=== PATIENT | female | born 1985 | race Caucasian/White ===

== ENCOUNTER 2016-11-28 09:25 | Inpatient (IN) | payer BC ==
[~2016-11-28] VITALS: Ht 162.6 cm; Wt 77.3 kg
[2017-03-10] MEDS ORDERED: PRENATAL1 TA7 PO (19:17)
[2017-03-10] MEDS ORDERED: BENTYL 20MG20 MG/TAB PO (20:49)
[2017-03-10] MEDS ORDERED: ZOFRAN ODT4 MG PO (20:49)
[2017-07-20] VITALS (19 sets, daily range): BP systolic 98–128; BP diastolic 47–85; PULSE 56–113; TEMP 97.3–98.1
[2017-07-20 06:24] LABS: HEMOGLOBIN 12.3 g/dl (12.5-16.0); MEAN CELL VOLUME 96 fl (80.0-100.0); MEAN CORPUSCULAR HEMOGLOBIN 33 pg (27.0-31.0); MEAN CORPUSCULAR HGB CONC 34 g/dl (33.0-37.0); MEAN PLATELET VOLUME 12.1 fl (7.4-10.4); PLATELET COUNT 187 K/mm3 (130-400); RED BLOOD COUNT 3.77 M/mm3 (4.10-5.30); REDCELL DISTRIBUTION WIDTH-CV 13.5 % (11.5-14.5); WHITE BLOOD COUNT 13.6 K/mm3 (4.8-10.8)
[2017-07-20 06:26] LABS: ADD PATHOLOGY DIFF REVIEW NO
[2017-07-20] MEDS ORDERED: BENADRYL25 M2 PO (06:52)
[2017-07-20 08:03] LABS: BAND 11 % (0-10); EOSINOPHIL 3 % (0-4); NEUTROPHILS 72 % (42.0-75.2); TOTAL CELLS COUNTED 100
[2017-07-20 08:04] LABS: PLATELET ESTIMATE NORMAL (NORMAL)
[2017-07-20] MEDS ORDERED: IBU600 MG PO (08:34)
[2017-07-20] MEDS ORDERED: PERCOCET 325 MG1 TA2 PO (08:34)
[2017-07-21 07:05] VITALS: BP 105/56; PULSE 73; TEMP 97.7
[2017-07-21 08:07] LABS: MEAN CELL VOLUME 98 fl (80.0-100.0); MEAN CORPUSCULAR HGB CONC 34 g/dl (33.0-37.0); MEAN PLATELET VOLUME 12.1 fl (7.4-10.4); PLATELET COUNT 180 K/mm3 (130-400); RED BLOOD COUNT 3.18 M/mm3 (4.10-5.30); REDCELL DISTRIBUTION WIDTH-CV 13.6 % (11.5-14.5); WHITE BLOOD COUNT 18.6 K/mm3 (4.8-10.8)
[2017-07-21 08:12] LABS: HEMOGLOBIN 10.4 g/dl (12.5-16.0); MEAN CORPUSCULAR HEMOGLOBIN 33 pg (27.0-31.0)
[2017-07-21 08:13] LABS: ADD PATHOLOGY DIFF REVIEW NO
[2017-07-21 09:39] LABS: BAND 14 % (0-10); NEUTROPHILS 75 % (42.0-75.2); PLATELET ESTIMATE NORMAL (NORMAL); TOTAL CELLS COUNTED 100
== END 2017-07-21 12:00 | disposition home or self-care (01) | DRG 766 ==
LOC: LDRO → EDSTATUS 07-11 06:51 → LDRO 07-11 10:28 → OB 07-20 05:21
PROVIDERS: Obstetrics & Gynecology
PROC: 10D00Z1 Extraction of Products of Conception, Low, Open Approach (ICD-10-PCS; principal; 2017-07-20)
DX: O34.211 Maternal care for low transverse scar from previous cesarean delivery (principal); N85.8 Other specified noninflammatory disorders of uterus; Z3A.39 39 weeks gestation of pregnancy; Z37.0 Single live birth
CPT/HCPCS: J0690; J1885; J2274; J2370; J2405; J2765; J2795; J3010; J7120

== ENCOUNTER 2017-03-10 19:00 | Emergency (ER) | payer BC ==
[~2017-03-10] VITALS: Ht 162.6 cm; Wt 63.6 kg
[2017-03-10 19:14] VITALS: TEMP 97.7
[2017-03-10] MEDS ORDERED: PRENATAL1 TA7 PO (19:17)
[2017-03-10 20:06] LABS: BASO # 0.1 (0.0-0.2); BASO % 0.5 % (0.0-2.0); EOS # 0.3 (0.0-0.7); EOS % 2.3 % (0-4.0); GRAN # 10.2 (1.4-6.5); GRAN % 77.1 % (42.2-75.2); HEMATOCRIT 35.9 % (37.0-47.0); HEMOGLOBIN 12.5 g/dl (12.5-16.0); LYMPH # 1.5 (1.2-3.4); LYMPH % 11.1 % (20.0-51.0); MEAN CELL VOLUME 94 fl (80.0-100.0); MEAN CORPUSCULAR HEMOGLOBIN 33 pg (27.0-31.0); MEAN CORPUSCULAR HGB CONC 35 g/dl (33.0-37.0); MEAN PLATELET VOLUME 10.6 fl (7.4-10.4); MONO % 7.9 % (1.7-9.3); PLATELET COUNT 230 K/mm3 (130-400); RED BLOOD COUNT 3.82 M/mm3 (4.10-5.30); REDCELL DISTRIBUTION WIDTH-CV 12.7 % (11.5-14.5); WHITE BLOOD COUNT 13.2 K/mm3 (4.8-10.8)
[2017-03-10 20:10] LABS: PH 6 (5-8); SQUAMOUS EPITHELIAL 0-2 /hpf; URINE APPEARANCE Clear; URINE BACTERIA None Seen /hpf; URINE BILIRUBIN Negative (NEGATIVE); URINE BLOOD Negative (NEGATIVE); URINE COLOR Yellow; URINE GLUCOSE Negative (NEGATIVE); URINE KETONE Trace (NEGATIVE); URINE RBC 0-2 /hpf; URINE UROBILINOGEN Negative (NEGATIVE); URINE WBC 0-2 /hpf
[2017-03-10 20:15] LABS: ALBUMIN 3.8 gm/dL (3.5-5.0); BILIRUBIN,TOTAL 0.6 mg/dL (0.0-1.0); CALCIUM 8.8 mg/dL (8.4-10.2); CREATININE, serum 0.79 mg/dL (0.52-1.25); POTASSIUM 3.7 mmol/L (3.4-5.0); TOTAL PROTEIN 6.8 gm/dL (6.4-8.2)
[2017-03-10] MEDS ORDERED: ZOFRAN ODT4 MG PO (20:49)
[2017-03-10] MEDS ORDERED: BENTYL 20MG20 MG/TAB PO (20:49)
[2017-03-10 21:03] VITALS: BP 118/68; PULSE 64
== END 2017-03-10 21:05 | disposition home or self-care (01) ==
LOC: COL.ER 19:00
PROVIDERS: Emergency Medicine
DX: O99.89 Other specified diseases and conditions complicating pregnancy, childbirth and the puerperium (principal); R10.84 Generalized abdominal pain; R11.2 Nausea with vomiting, unspecified; Z3A.20 20 weeks gestation of pregnancy
CPT/HCPCS: J0500; J2405; J7030

== ENCOUNTER 2018-08-16 06:36 | Inpatient (IN) | payer MEDICAID ==
[~2018-08-16] VITALS: Ht 162.6 cm; Wt 73.2 kg
[2018-08-16] VITALS (18 sets, daily range): BP systolic 99–120; BP diastolic 56–88; PULSE 60–76; TEMP 97.4–98.4
[~2018-08-16 06:36] MED LIST: BENADRYL25 M2 PO; BENTYL 20MG20 MG/TAB PO; IBU600 MG PO; PERCOCET 325 MG1 TA2 PO; PRENATAL1 TA7 PO; ZOFRAN ODT4 MG PO
[2018-08-16 10:13] LABS: BASO % 0.4 % (0.0-2.0); EOS # 0.2 (0.0-0.7); EOS % 1.6 % (0-4.0); GRAN % 71.5 % (42.2-75.2); HEMOGLOBIN 10.9 g/dl (12.5-16.0); LYMPH # 1.5 (1.2-3.4); LYMPH % 15.3 % (20.0-51.0); MEAN CELL VOLUME 91 fl (80.0-100.0); MEAN CORPUSCULAR HEMOGLOBIN 30 pg (27.0-31.0); MEAN CORPUSCULAR HGB CONC 33 g/dl (33.0-37.0); MEAN PLATELET VOLUME 12.7 fl (7.4-10.4); MONO # 0.9 (0.1-0.6); MONO % 9.1 % (1.7-9.3); PLATELET COUNT 187 K/mm3 (130-400); RED BLOOD COUNT 3.67 M/mm3 (4.10-5.30); REDCELL DISTRIBUTION WIDTH-CV 13.2 % (11.5-14.5)
[2018-08-16 10:14] LABS: HEMATOCRIT 33.5 % (37.0-47.0)
[2018-08-17 08:45] VITALS: BP 111/71; PULSE 67; TEMP 98.5
[2018-08-17] MEDS ORDERED: PERCOCET 325 MG1 TA2 PO (09:11)
[2018-08-17] MEDS ORDERED: IBU600 MG PO (09:12)
== END 2018-08-17 14:00 | disposition home or self-care (01) | DRG 788 ==
LOC: LDR 06:36 → OB 09:14
PROVIDERS: Obstetrics & Gynecology
PROC: 10D00Z1 Extraction of Products of Conception, Low, Open Approach (ICD-10-PCS; principal; 2018-08-16)
DX: O34.211 Maternal care for low transverse scar from previous cesarean delivery (principal); Z3A.39 39 weeks gestation of pregnancy; Z37.0 Single live birth; O99.02 Anemia complicating childbirth; D64.9 Anemia, unspecified
CPT/HCPCS: J0690; J1100; J1885; J2274; J2550; J2590; J2765; J2795; J3010; J7120

== ENCOUNTER 2021-01-31 05:30 | Day surgery (SDC) | payer OTHER ==
[~2021-01-31] VITALS: Ht 162.6 cm; Wt 58.2 kg
[2021-01-31] VITALS (8 sets, daily range): BP systolic 99–120; BP diastolic 56–78; PULSE 58–77; TEMP 97.4–98.5
[2021-01-31] MEDS ORDERED: LEXAPRO 10MG10 MG PO (05:47)
[2021-01-31] MEDS ORDERED: MOTRIN 800800 MG/TAB PO (08:32)
[2021-01-31] MEDS ORDERED: PERCOCET 325 MG1 TA2 PO (08:33)
--- NOTE | 2021-01-31 09:30 | NUR ---
Presents to [facility] via bed with nurse Liset. Patient awake and oriented to room. Denies any discomfort or needs at this time.
--- NOTE | 2021-01-31 10:00 | NUR ---
Rests in bed, alert. Denies any needs at this time.
--- NOTE | 2021-01-31 11:15 | NUR ---
Rests in bed, alert. Eating crackers, tolerates well.
--- NOTE | 2021-01-31 17:00 | NUR ---
Rests in bed, alert. Percocet one 5/325 mg given per request and as ordered. States having cramping. Warm blanket to abdomimal area.
--- NOTE | 2021-01-31 18:00 | NUR ---
Discharge instructions given, verbalizes understanding.
== END 2021-01-31 18:31 | disposition home or self-care (01) ==
LOC: SDCO 05:30
DX: N92.0 Excessive and frequent menstruation with regular cycle (principal); N94.6 Dysmenorrhea, unspecified; D26.1 Other benign neoplasm of corpus uteri; N83.8 Other noninflammatory disorders of ovary, fallopian tube and broad ligament; F41.8 Other specified anxiety disorders; Z20.822 Contact with and (suspected) exposure to COVID-19; Z79.899 Other long term (current) drug therapy
CPT/HCPCS: J1100; J1200; J1885; J2250; J2405; J2704; J3010; J7120